=== PATIENT | male | born 1955 | race Caucasian/White ===

== ENCOUNTER → 2021-09-25 | Outpatient (CLI) | payer BC ==
[2021-09-25 11:55] LABS: BASOPHIL % 0.3 % (0.0-0.2); EOSINOPHIL # 0.2 10^3/uL (0.0-0.2); EOSINOPHIL % 2.7 % (0.0-5.0); LYMPHOCYTES # 1.67 10^3/uL1 (1.0-4.8); LYMPHOCYTES % 26.3 % (24.0-44.0); MEAN CORP HGB 29.7 pg (26-34); MONOCYTES # 0.5 10^3/uL (0.3-0.8); MONOCYTES % 7.4 % (5.0-12.0); NEUTROPHILS % 63.1 % (41.0-85.0); PLATELET COUNT 229 10^3/uL (150-400); RED CELL DISTRIBUTION WIDTH 13.6 % (11.5-14.5)
[2021-09-25 12:19] LABS: CARBON DIOXIDE 29.4 mmol/L (20.0-32)
== END | disposition home or self-care (01) ==
LOC: LAB 11:46
PROVIDERS: ATTEND Internal Medicine
DX: I10 Essential (primary) hypertension (principal); N40.0 Benign prostatic hyperplasia without lower urinary tract symptoms; Z79.899 Other long term (current) drug therapy
CPT/HCPCS: 36415; 80050; 80053; 80061; 83036; 84153; 84439; 84443; 85025